=== PATIENT | female | born 1985 | race Caucasian/White ===

== ENCOUNTER → 2018-11-23 07:11 | Outpatient (CLI) | payer OTHER, SELFPAY ==
--- NOTE | 2018-11-23 07:19 | CT_ITS ---
STUDY: CT ABDOMEN AND PELVIS WITH CONTRAST REASON FOR EXAM: Female, 33 years old. Normal ovarian cyst on the right. Patient feels lump on left. RADIATION DOSAGE (If Supplied By Facility): CTDIvol = ( 6.61 ) mGy, DLP = ( 519.67 ) mGycm TECHNIQUE: Transaxial images were obtained from the dome of the diaphragm to the symphysis pubis with oral contrast. 100CC IV/Oral Isovue 300 was administered. Sagittal and coronal images were reconstructed. Individualized dose optimization techniques were used for this CT. COMPARISON: None. FINDINGS: The visualized lung bases are unremarkable. The visualized portions of the heart are within normal limits. Normal liver. Normal gallbladder and extrahepatic biliary system. Normal spleen. Normal pancreas. Normal bilateral adrenal glands. Normal right kidney. Normal left kidney. Normal contrast-filled stomach. Normal contrast filled small intestine. No contrast in the distal small bowel loops. Fecal contents throughout the colon. No bowel obstruction. The appendix is visualized and appears normal. Normal abdominal aorta. Normal inferior vena cava. Normal retroperitoneum. Normal urinary bladder. Normal fluid filled uterine cavity. 1.5 cm cyst in the left ovary is most likely follicular cyst. No visible cyst in the right ovary but there are adjacent fluid-filled small intestine. Normal abdominal wall. Normal osseous structures. CT/Abdomen/Pelvis WITH Contrast IMPRESSION: 1. No CT evidence of mass or acute abnormality in the abdomen and pelvis. 2. 1.5 cm cyst in the left ovary is most likely follicular cyst. Electronically Signed: Christopher Estrella MD at 12:23 EDT , Service support ,
== END ==
PROVIDERS: Family Provider Family Medicine; PCP Family Medicine; Referring Provider Family Medicine; Visit Provider Family Medicine
DX: N83.209 Unspecified ovarian cyst, unspecified side (principal)
CPT/HCPCS: 74177; Q9967

== ENCOUNTER 2019-02-08 17:41 | Emergency (ER) | payer OTHER, SELFPAY ==
[2019-02-08 17:43] VITALS: BP 135/87; PULSE 105; RESP 17; TEMP 37.1; O2SAT 99; BMI 25.1
--- NOTE | 2019-02-08 18:22 | ED.VISSUMM ---
- ER Visit Summary Date of Service: 02/08/19 Chief Complaint: [Laceration left thumb ] History of Present Illness: The patient is a 33 F [presents to the emergency department after sustaining a laceration to her left thumb while attempting to cut an onion. Patient is right-hand dominant. Patient unsure of her last tetanus.] Physical Examination: [Thumb-patient has a 1.8 cm laceration over the distal phalanx that is flap like it involves a small portion of the distal nail measuring approximately 5 mm in length. No bony tenderness on exam. Patient neurovascular intact.] Test Results: [None indicated] Emergency Department Course and Treatment: Laceration repair-wound sterilely draped and prepped. Using 1% lidocaine total of 8 cc used to perform a digital block. Wound cleansed with Shur-Clens and irrigated with copious saline. Used a sterile turnicot for hemostasis. Using 5-0 nylon a total of 4 single interrupted sutures placed with good wound edge approximation. Patient tolerated procedure well.] Treatment Plan: [Follow up with primary care physician in 10 days for suture removal.] Disposition: [Discharged home in stable condition] Impression: [Left thumb laceration with simple repair-1.8 cm] This note was generated with Student Designed dictation software. It may contain incorrect words, spelling, and punctuation that were not noted in review of the chart prior to signing ED Disposition - Plan for ED Patient: Referrals: Guillermo Young MD [Primary Care Provider] -
--- NOTE | 2019-02-08 18:26 | ED.DEP ---
ED Disposition - Plan for ED Patient: Instructions: LACERATION, Hand Referrals: Guillermo Young MD [Primary Care Provider] - 10 Day for suture removal
[2019-02-08] MEDS: Diphth,Pertuss(Acell),Tet Vac 0.5 ML Vial IM (18:28)
== END 2019-02-08 18:52 | disposition home or self-care (01) ==
LOC: ED 18:29
PROVIDERS: Emergency Provider Emergency Medicine; Family Provider Family Medicine; PCP Family Medicine
DX: S61.012A Laceration without foreign body of left thumb without damage to nail, initial encounter (principal); W26.9XXA Contact with unspecified sharp object(s), initial encounter; Y93.9 Activity, unspecified; Y92.9 Unspecified place or not applicable
CPT/HCPCS: 12001; 90471; 90715; 99283

== ENCOUNTER → 2019-09-04 08:56 | Outpatient (CLI) | payer OTHER, SELFPAY ==
[2019-09-04 09:48] LABS: Absolute Lymphocyte Count 1.18 X10^3/uL (0.83-4.51); Absolute Neutrophil Count 3.7 X10^3/uL (2.0-7.7); Basophil# 0.03 X10^3/uL; Basophil% 0.5 % (0-1); Eosinophil# 0.17 X10^3/uL; Eosinophils% 3.1 % (0-5); Hematocrit 40.4 % (37-47); Hemoglobin 12.9 g/dL (12.0-15.0); Lymphocyte # 1.18 X10^3/ul (4.0); Lymphocyte % 21.4 % (19-41); Mean Corp Hgb Conc 31.9 g/dL (32-36); Mean Corpuscular Hgb 28.2 pg (27.0-32.0); Mean Corpuscular Volume 88.4 fL (81-99); Mean Platelet Vol. 9.4 fl (6.2-12.0); Monocyte# 0.42 X10^3/uL; Monocyte% 7.6 % (0-10); NRBC Flagged by Analyzer 0 % (0-5); Neutrophil # 3.71 X10^3/uL (2.7-7.7); Neutrophil % 67.2 % (47-70); Platelet Count 318 K/mm3 (150-450); RBC Distribution Width CV 12.8 % (11.6-14.6); RBC Distribution Width SD 41.3 fl (35.1-43.9); Red Blood Count 4.57 M/mm3 (4.2-5.4); White Blood Count 5.5 K/mm3 (4.4-11.0)
[2019-09-04 10:05] LABS: Erythrocyte Sedimentation Rate 4 mm/hr (0-20)
[2019-09-04 10:12] LABS: ALB/GLOB Ratio 1.1 RATIO (0.9-2.4); AST(SGOT) 13 U/L (15-37); Alanine Aminotransfer ALT/SGPT 15 U/L (13-56); Alkaline Phosphatase 47 U/L (45-117); Anion Gap 4 (5-15); BUN 14 mg/dL (7-18); BUN/Creat Ratio 15.6 RATIO (10-20); Calcium,Total 8.9 mg/dL (8.5-10.1); Chloride 110 mmol/L (98-107); EST Glomerular Filtration Rate 75 mL/min (>60); Est Glom Filt Rate - Afr Amer 91 mL/min (>60); Globulin 3.6 g/dL (2.2-4.2); Glucose 86 mg/dL (74-106); Iron 143 ug/dL (50-170); Potassium 3.7 mmol/L (3.5-5.1); Protein, Total 7.6 g/dL (6.4-8.2); Sodium Level 139 mmol/L (136-145)
[2019-09-04 10:15] LABS: Vitamin B12 553 pg/mL (211-911); Vitamin D,25 Hydroxy 34.4 ng/mL
[2019-09-06 03:06] LABS: Lyme IgG P18 Ab Present (.); Lyme IgG P23 Ab Absent (.); Lyme IgG P28 Ab Absent (.); Lyme IgG P30 Ab Absent (.); Lyme IgG P39 Ab Present (.); Lyme IgG P41 Ab Absent (.); Lyme IgG P45 Ab Absent (.); Lyme IgG P58 Ab Absent (.); Lyme IgG P66 Ab Absent (.); Lyme IgG P93 Ab Absent (.); Lyme IgM P23 Ab Absent (.); Lyme IgM P39 Ab Absent (.); Lyme IgM P41 Ab Absent (.)
[2019-09-06 15:42] LABS: EBV Acute VCA IgM < 36.0 U/mL (0.0-35.9); Lyme IgG WB Interpretation Negative (.); Lyme IgM WB Interpretation Negative (.); Thyroglobulin Antibody < 1.0 IU/mL (0.0-0.9); Thyroid Peroxidase AB 9 IU/mL (0-34)
== END ==
PROVIDERS: PCP Family Medicine
DX: R53.83 Other fatigue (principal)
CPT/HCPCS: 36415; 80053; 82306; 82533; 82607; 83540; 85025; 85652; 86376; 86617; 86664; 86665; 86800

== ENCOUNTER → 2019-09-11 14:00 | Outpatient (CLI) | payer OTHER, SELFPAY ==
[2019-09-11 18:18] LABS: Free T3 2.6 pg/mL (2.18-3.98); T4 Total, Thyroxin 11.4 ug/dL (4.8-13.9); Thyroid Stim Hormone (TSH) 0.73 uIU/mL (0.358-3.74)
== END ==
PROVIDERS: PCP Family Medicine; Referring Provider Family Medicine; Visit Provider Family Medicine
DX: E03.9 Hypothyroidism, unspecified (principal)
CPT/HCPCS: 36415; 84436; 84443; 84481

== ENCOUNTER 2022-11-25 18:09 | Inpatient (IN) | payer OTHER, SELFPAY ==
[2022-11-25] VITALS (9 sets, daily range): BP systolic 98–133; BP diastolic 58–74; PULSE 98–133; RESP 17–29; TEMP 36.5–36.6; O2SAT 94–100; BMI 19.5
--- NOTE | 2022-11-25 18:29 | EKG12_ITS ---
Test Reason : DYSRHYTHMIA Blood Pressure : / mmHG Vent. Rate : 110 BPM Atrial Rate : 110 BPM P-R Int : 112 ms QRS Dur : 084 ms QT Int : 480 ms P-R-T Axes : 069 070 065 degrees QTc Int : 649 ms Sinus tachycardia Prolonged QT Abnormal ECG Confirmed by EMMA ASH, MARBELLA ([id number]), tape editor GALLITO WHEAT ([id number]) on 11/26/2022 9:24:03 AM Referred By: SHARMIN Confirmed By:MARBELLA CARTER MD
[2022-11-25 18:39] LABS: Absolute Lymphocyte Count 2.08 X10^3/uL (0.83-4.51); Absolute Neutrophil Count 10.4 X10^3/uL (2.0-7.7); Basophil% 0.7 % (0-1); Eosinophil# 0.04 X10^3/uL; Eosinophils% 0.3 % (0-5); Hematocrit 44.3 % (37-47); Hemoglobin 14.3 g/dL (12.0-15.0); Lymphocyte # 2.08 X10^3/ul (0.83-4.51); Lymphocyte % 15.5 % (19-41); Mean Corp Hgb Conc 32.3 g/dL (32-36); Mean Corpuscular Hgb 28.9 pg (27.0-32.0); Mean Corpuscular Volume 89.5 fL (81-99); Mean Platelet Vol. 9.4 fl (6.2-12.0); NRBC Flagged by Analyzer 0 % (0-5); Neutrophil # 10.36 X10^3/uL (2.7-7.7); Neutrophil % 77.1 % (47-70); Platelet Count 414 K/mm3 (150-450); RBC Distribution Width CV 12.6 % (11.6-14.6); RBC Distribution Width SD 41.2 fl (35.1-43.9); Red Blood Count 4.95 M/mm3 (4.2-5.4); White Blood Count 13.4 K/mm3 (4.4-11.0)
[2022-11-25 18:56] LABS: Bacteria 0 SEEN /hpf (None Seen); Mucous, Urine 0 SEEN /hpf (<or=2+); Red Blood Cells-Urine 0 SEEN /hpf (0-5); White Blood Cells 0 SEEN /hpf (0-5)
[2022-11-25 18:58] LABS: ALB/GLOB Ratio 1.1 RATIO (0.9-2.4); AST(SGOT) 11 U/L (15-37); Alanine Aminotransfer ALT/SGPT 13 U/L (13-56); Albumin, Serum 4.4 g/dL (3.2-5.0); Alkaline Phosphatase 49 U/L (45-117); Anion Gap 15 (5-15); BUN 14 mg/dL (7-18); Calcium,Total 9.8 mg/dL (8.5-10.1); Chloride 103 mmol/L (98-107); Creatinine, Serum 1.08 mg/dL (0.55-1.02); EST Glomerular Filtration Rate 60 mL/min (>60); Est Glom Filt Rate - Afr Amer 73 mL/min (>60); Estimated Creatinine Clearance 64.48 ml/min; Globulin 3.9 g/dL (2.2-4.2); Glucose 154 mg/dL (74-106); Protein, Total 8.3 g/dL (6.4-8.2); Sodium Level 139 mmol/L (136-145)
[2022-11-25 18:58] LABS: Color, Urine Yellow (Yellow); Glucose, Dipstick Normal (Normal); Ketone-Dipstick 5 mg/dl (Negative); Leukocyte Esterase-Dipstick Negative /ul (Negative); Nitrite-Dipstick Negative (Negative); Occult Blood-Urine 10 /ul (Negative); Protein-Dipstick 15 mg/dl (Negative); Urine Bilirubin Dipstick Negative (Negative); Urine Clarity Clear (Clear); Urine Urobilinogen Normal (Normal)
[2022-11-25 19:00] LABS: Internal QC Validated? YES +Cl - CLEAR BKGD; Pregnancy, Serum, hCG Quali. NEGATIVE Negative
[2022-11-25 19:03] LABS: Acetaminophen (Tylenol) Level 226.2 ug/mL (10.0-30.0)
[2022-11-25 19:08] LABS: Squamous Epithelial Cells - UA 0-5 SEEN /hpf (5-10)
[2022-11-25 19:23] LABS: Amphetamine Urine VISTA NEGATIVE (<1000 ng/mL); Barbiturate Urine VISTA NEGATIVE (< 200 ng/mL); Benzodiazepine Urine VISTA NEGATIVE (< 200 ng/mL); Cocaine Urine VISTA NEGATIVE (< 300 ng/mL); Ecstacy Urine VISTA NEGATIVE (< 500 ng/mL); Methadone Urine VISTA NEGATIVE (< 300 ng/mL); PCP Urine VISTA NEGATIVE (< 25 ng/mL); THC Urine VISTA NEGATIVE (< 50 ng/mL); Vista UDS pH Range 4
--- NOTE | 2022-11-25 19:32 | CM.ED ---
Social Work SW met with MD Camacho to review patient's presenting symptoms and safety concerns. Patient is pink slipped due to suicide attempt. Patient to be evaluated once medically cleared. Treva LYNN, JANNETTE
[2022-11-25] MEDS: 0.9% Normal Saline 1,000 ML 1000 ML IV (20:36)
[2022-11-25 21:33] LABS: Acetaminophen (Tylenol) Level 319.1 ug/mL (10.0-30.0)
--- NOTE | 2022-11-25 22:00 | PCM.HP.STD ---
HPI - General General Date of Admission: 11/25/22 Date of Service: 11/25/22 Chief Complaint: Suicide attempt, tylenol overdose HPI Narrative The patient is a 37 y/o F w/ PMHx: Hypothyroidism, Depression previously on medications/counseling with at her [facility] most recently 6 months prior with remote (~20 years ago) suicide attempt with similar pattern who presents to the [facility] ED on 11/25/22 with significant depressive history with suicide attempt with self administration of unclear amounts of alcohol as well as Tylenol PM/Sudafed reportedly just before she texted her spouse noting that she was not worthy and to tell her children that she loved them prompting him to immediately call EMS at 17:22 with possible ingestion just prior to this (possible 4:45 pm) but unclear exact time. Patient initially refused any treatment from EMS or any treatment and transferred to the hospital. Patient's did show EMS which she had wrote him earlier stating that he had always deserve better and that she wanted make sure the kids knew that she loved them. Given this patient was pink slipped and brought to the ED. On route patient became significantly more drowsy and had a bout of emesis. Patient eventually became only responsive to stimuli verbally and could not answer any questions. From discussion with patient has reportedly been utilizing social media quite a bit and messaging potentially with a gentleman who lives in [place] who she is known prior to their marriage and may have significant guilt about this from his report. Work-up in the ED included T97.7, heart rate 133, BP 118/74, respiratory rate 25, 94% on room air--> most recent vital signs BP 98/60, respiratory rate 24, heart rate 110, 97% on room air, CBC with WBC 13.4, hemoglobin 14.3, platelet 414 with left shift, CMP with potassium 3.0, BUN/creatinine 14/1.08, glucose 154, hepatic profile not marked appearing, serum testing negative, urinalysis with specific IV 1.020 otherwise not marked appearing, UDS negative, ethyl alcohol 103, acetaminophen level 226.2 with repeat acetaminophen level increased to 319.1 (obtained at 4 hour darnell) therefore patient initiated on N-acetylcysteine dosing protocol and administered 1 L normal saline as well as Zofran 4 mg IV x1. [facility] Medical History (Updated 11/25/22 @ 22:[address] Selma Olsen MD) Depression History of suicide attempt Hypothyroidism Home Medications levothyroxine 100 mcg tablet (Synthroid) 100 mcg PO DAILY 11/25/22 [History Last Taken Unknown] Allergy/AdvReac Type Severity Reaction Status Date / Time suture Allergy NEEDS Verified 04/02/22 14:59 FOLLOW-UP Family History (Updated 11/25/22 @ 22:[address] Selma Olsen MD) Mother Anxiety and depression Father Heart disease Sister Anxiety and depression Sister x 2 with depression/anxiety. Surgical History (Updated 11/25/22 @ 22:[address] Selma Olsen MD) History of thyroidectomy Surgical History no surgical history Social History (Updated 11/25/22 @ 22:[address] Selma Olsen MD) household members: spouse and children Smoking Status: Never smoker alcohol intake: current alcohol intake frequency: a few times a month substance use type: does not use ROS Review of Systems ROS Unobtainable: due to encephalopathy and due to mental condition Vital Signs Vital Signs Vital Signs: 11/25/22 18:11 11/25/22 18:25 11/25/22 20:57 Temperature 97.7 F L Temperature Source Temporal Pulse Rate 133 H 130 H 110 H Respiratory Rate 25 H 24 H Blood Pressure 118/74 98/60 Blood Pressure Mean 88 72 Pulse Ox 94 97 Oxygen Delivery Method Room Air Room Air 11/25/22 21:00 Temperature Temperature Source Pulse Rate 115 H Respiratory Rate 17 Blood Pressure 113/67 Blood Pressure Mean 82 Pulse Ox 97 Oxygen Delivery Method Room Air Weight Weight: 128 lb 11.999 oz Body Mass Index (BMI) 19.5 Physical Exam Narrative Physical Examination: General: Awake, lethargic, encephalopathic, following movements but not answering any orientation questions or following marked commands, laying in the ED bed, extremely flat affect. Skin: Normal color, normal turgor, no icterus, no cyanosis. HEENT: AT/NC, EOM appear to be intact though she does follow me from sides of the bed, PERRLA, dry MM, no carotid bruits or JVD noted. Lungs: Diminished, greater bases, appropriate effort, no rales, ronchi or wheezing. Heart: Tachycardic with regular rhythm; no gallop, rub audible. Abdomen: Soft, NTTP, ND, hyperactive BS, no HSM. Extremities: No cyanosis, clubbing, or edema. Neurological: Awake, lethargic, encephalopathic, following movements but not answering any orientation questions or following marked commands, laying in the ED bed, extremely flat affect, cognitive function not baseline intact; pupils equally reactive to light and accommodation, cranial nerves difficult to assess given her encephalopathy but grossly appear normal, moving all 4 extremities spontaneously, strength difficult to if assessed as not following commands, very lethargic. Psychiatric: Affect appears flat, underlying history of depression with prior similar suicide attempt per discussion with present. Results Lab / Micro Data 11/25/22 18:20 11/25/22 18:20 Labs: Laboratory Results - last 24 hr 11/25/22 18:20: WBC 13.4 H, RBC 4.95, Hgb 14.3, Hct 44.3, MCV 89.5, MCH 28.9, MCHC 32.3, RDW Std Deviation 41.2, RDW Coeff of Jessy 12.6, Plt Count 414, MPV 9.4, Immature Gran % (Auto) 0.400, Neut % (Auto) 77.1 H, Lymph % (Auto) 15.5 L, [place] % (Auto) 6.0, Eos % (Auto) 0.3, Baso % (Auto) 0.7, Absolute Neuts (auto) 10.4 H, Absolute Lymphs (auto) 2.08, Nucleated RBC % 0, Sodium 139, Potassium 3.0 L, Chloride 103, Carbon Dioxide 21.0, Anion Gap 15, BUN 14, Creatinine 1.08 H, Estim Creat Clear Calc 64.48, Est GFR (MDRD) Af Amer 73, Est GFR (MDRD) Non-Af 60, BUN/Creatinine Ratio 13.0, Glucose 154 H, Calcium 9.8, Total Bilirubin 0.50, AST 11 L, ALT 13, Alkaline Phosphatase 49, Total Protein 8.3 H, Albumin 4.4, Globulin 3.9, Albumin/Globulin Ratio 1.1, Serum , Qual NEGATIVE, Acetaminophen 226.2 H*, Ethyl Alcohol 103.0 11/25/22 18:50: Urine Color Yellow, Urine Clarity Clear, Urine pH 5.0, Ur Specific [place] 1.020, Urine Protein 15 H, Urine Glucose (UA) Normal, Urine Ketones 5 H, Urine Occult Blood 10 H, Urine Nitrite Negative, Urine Bilirubin Negative, Urine Urobilinogen Normal, Ur Leukocyte Esterase Negative, Urine RBC 0 SEEN, Urine WBC 0 SEEN, Ur Squamous Epith Cells 0-5 SEEN, Urine Bacteria 0 SEEN, Urine Mucus 0 SEEN, Urine Opiates Screen NEGATIVE, Urine Methadone Screen NEGATIVE, Ur Barbiturates Screen NEGATIVE, Ur Phencyclidine Scrn NEGATIVE, Ur Amphetamines Screen NEGATIVE, MDMA (Ecstasy) Screen NEGATIVE, U Benzodiazepines Scrn NEGATIVE, Urine Cocaine Screen NEGATIVE, U Cannabinoids Screen NEGATIVE, Ur Drug Screen Comment 11/25/22 20:50: Acetaminophen 319.1 H* Assessment & Plan Assessment/Plan (1) Tylenol overdose: (2) Suicide attempt: PLAN: Plan The patient is a 37 y/o F w/ PMHx: Hypothyroidism, Depression previously on medications/counseling with at her [facility] most recently 6 months prior with remote (~20 years ago) suicide attempt with similar pattern who presents to the [facility] ED on 11/25/22 with significant depressive history with suicide attempt with self administration of unclear amounts of alcohol as well as Tylenol PM/Sudafed reportedly just before she texted her spouse noting that she was not worthy and to tell her children that she loved them prompting him to immediately call EMS. #1. Acute Encephalopathy secondary to Acute intentional acetaminophen overdose coupled with #2 EtOH intoxication with underlying Severe Depression w/ prior remote suicide attempt, not current on medications or in active counseling: We will admit to the ICU, will maintain on suicide precautions low threshold to intubate if status deteriorates or unable to protect airway, given ingestion is within 4 hours we will continue with oral administration of activated charcoal 1 g/kg with maximum dose 50 g unless altered mental status, will continue with N-acetylcysteine administration initiated in the ED with continued acetaminophen level as well as CMP trending, monitor for any nonallergic anaphylactic reactions as needed antiemetics, monitor coags, once patient has been clinically cleared will need crisis involvement and she will need psychiatric placement for severe uncontrolled depression with a significant suicide attempt. We will continue suicide precautions. Discussed with patient spouse that she would strongly benefit from psychiatrist/psychologist evaluations as she has been following with counseling at her [facility] from description as there are several other options aside not only medications and counseling but potentially ketamine versus electroshock therapy given severity of this current presentation if items have not worked for her in the past. #2. Acute alcohol intoxication: In addition to unclear amounts of Tylenol PM patient ingested unclear amount of alcohol, presentation alcohol level 103, continue aggressive hydration, monitor CMP, monitor coags, trend ethyl alcohol level as will be needed prior to psych transfer. #3. Hyperglycemia, suspect stress response: Admission glucose 154, suspect stress response, will continue to trend CMP and if remains elevated will obtain hemoglobin A1c. #4. Hypokalemia: Admission K+ 3.0, magnesium level requested, supplementation given, repeat level in AM. #5. Hypothyroidism: We will continue Synthroid regimen as long as oral intake is safe. Given significant depression we will obtain TSH and free T4. #6. DVT prophylaxis: Low risk. Charges/Coding Visit Charges Inpatient E&M: 44357 Init Hosp L3
--- NOTE | 2022-11-25 22:07 | EX.ED.SAOD ---
HPI History of Present Illness Chief Complaint: Overdose Informant: spouse/S.O. Onset/Context/Timing Onset: Today Context: Sudden Onset Timing: Continuous Quality: Depressed Location: Generalized Worsened by: Nothing Relieved by: Nothing Associated Symptoms Associated Symptoms: Positive for suicidal ideation Narrative Narrative: Patient presents after overdose on medications that occurred today. states that he found the patient after she drank alcohol. states the patient told her that she took a couple Tylenol p.m. also states that the patient admitted that she also took some Sudafed p.m. Later, states that patient admitted to taking a couple handfuls of Tylenol PM. states he found a suicide note. Patient is nonverbal and does not answer any questions. reports that the patient took the Tylenol at approximately 4:45 PM today. [facility] Medical History Hypothyroidism Home Medications levothyroxine 100 mcg tablet (Synthroid) 100 mcg PO DAILY 11/25/22 [History Last Taken Unknown] Allergy/AdvReac Type Severity Reaction Status Date / Time suture Allergy NEEDS Verified 04/02/22 14:59 FOLLOW-UP Surgical History no surgical history no surgical history Social History Smoking Status: Never smoker ROS ROS ED Review of Systems ROS Unobtainable: due to mental condition and due to mental status EXAM Physical Exam Const Vital Signs: 11/25/22 18:11 11/25/22 18:25 11/25/22 20:57 Temperature 97.7 F L Temperature Source Temporal Pulse Rate 133 H 130 H 110 H Respiratory Rate 25 H 24 H Blood Pressure 118/74 98/60 Blood Pressure Mean 88 72 Pulse Ox 94 97 Oxygen Delivery Method Room Air Room Air 11/25/22 21:00 Temperature Temperature Source Pulse Rate 115 H Respiratory Rate 17 Blood Pressure 113/67 Blood Pressure Mean 82 Pulse Ox 97 Oxygen Delivery Method Room Air Positive well developed General Appearance ED: well developed and NAD HEENT Reports moist mucous membranes Eyes PERRL and EOMs intact bilaterally Neck supple and no JVD Resp Auscultation: diminished lung sounds Cardio regular rhythm Rate: tachycardic GI soft to palpation, non-tender and non-distended Neuro Christopher Coma Scale: document GCS findings To Voice Localizes to Pain Incomprehensible 10 Psych Mood & Affect: depressed MDM MDM MDM Narrative Medical decision making narrative: Differential diagnosis includes acetaminophen toxicity, suicidal ideation, alcohol intoxication, substance abuse, anticholinergic toxicity, dehydration, electrolyte abnormality, and hepatic abnormality. CBC will be obtained to assess for leukocytosis and anemia. Comprehensive metabolic profile will be obtained to assess for hepatic function, renal function or mood electrolyte abnormality. Serum hCG will be obtained to assess for . PT with INR and PTT will be obtained to assess for coagulopathy. Urine tox screen will be obtained to assess for substance abuse. Serum alcohol level will be obtained to assess for signs of alcohol intoxication. Urinalysis will be obtained to assess for urinary tract infection. 4-hour acetaminophen level will be obtained to assess for acetaminophen toxicity. Lab Data Attestation: I reviewed the patient's lab results. Lab results narrative: CBC was reviewed. There is a mild leukocytosis of 13.4. The remainder is within normal limits. Comprehensive metabolic profile was reviewed. Glucose was slightly elevated at 154. Creatinine was 1.08. The remainder is within normal limits. Serum hCG was reviewed and was negative. Serum alcohol level was reviewed and was 103. Urine tox screen was reviewed and was negative. Urinalysis was reviewed and was negative. Acetaminophen level was initially obtained with initial labs and was 226.2. The 4-hour acetaminophen level was reviewed and was 319.1. Labs: Laboratory Results - last 24 hr 11/25/22 11/25/22 11/25/22 18:20 18:50 20:50 WBC 13.4 H RBC 4.95 Hgb 14.3 Hct 44.3 MCV 89.5 MCH 28.9 MCHC 32.3 RDW Std Deviation 41.2 RDW Coeff of Jessy 12.6 Plt Count 414 MPV 9.4 Immature Gran % (Auto) 0.400 Neut % (Auto) 77.1 H Lymph % (Auto) 15.5 L [place] % (Auto) 6.0 Eos % (Auto) 0.3 Baso % (Auto) 0.7 Absolute Neuts (auto) 10.4 H Absolute Lymphs (auto) 2.08 Nucleated RBC % 0 Sodium 139 Potassium 3.0 L Chloride 103 Carbon Dioxide 21.0 Anion Gap 15 BUN 14 Creatinine 1.08 H Estim Creat Clear Calc 64.48 Est GFR (MDRD) Af Amer 73 Est GFR (MDRD) Non-Af 60 BUN/Creatinine Ratio 13.0 Glucose 154 H Calcium 9.8 Total Bilirubin 0.50 AST 11 L ALT 13 Alkaline Phosphatase 49 Total Protein 8.3 H Albumin 4.4 Globulin 3.9 Albumin/Globulin Ratio 1.1 Serum , Qual NEGATIVE Urine Color Yellow Urine Clarity Clear Urine pH 5.0 Ur Specific [place] 1.020 Urine Protein 15 H Urine Glucose (UA) Normal Urine Ketones 5 H Urine Occult Blood 10 H Urine Nitrite Negative Urine Bilirubin Negative Urine Urobilinogen Normal Ur Leukocyte Esterase Negative Urine RBC 0 SEEN Urine WBC 0 SEEN Ur Squamous Epith Cells 0-5 SEEN Urine Bacteria 0 SEEN Urine Mucus 0 SEEN Urine Opiates Screen NEGATIVE Urine Methadone Screen NEGATIVE Acetaminophen 226.2 H* 319.1 H* Ur Barbiturates Screen NEGATIVE Ur Phencyclidine Scrn NEGATIVE Ur Amphetamines Screen NEGATIVE MDMA (Ecstasy) Screen NEGATIVE U Benzodiazepines Scrn NEGATIVE Urine Cocaine Screen NEGATIVE U Cannabinoids Screen NEGATIVE Ur Drug Screen Comment Ethyl Alcohol 103.0 EKG Initial EKG: Attestation: I personally reviewed and interpreted this EKG as follows: Interpretation: Sinus Tachycardia (110) and Non-Specific ST Changes Comments: EKG was obtained. On my independent interpretation, it showed a sinus tachycardia with a rate of 110. [place] interval was within normal limits. QRS interval was within normal limits. QTc interval was prolonged at 649 ms. [place] was normal. There are nonspecific ST-T wave changes. Prior EKG tracings: not available for review Prior: No Prior Management Discussion w/another healthcare provider: Hospitalist Treatment and Re-Evaluation Narrative: Patient was given IV fluids and Zofran. Because of the elevated 4-hour acetaminophen level, patient was started on IV N-acetylcysteine. Case was discussed with the hospitalist. She will admit patient to ICU. understood and was agreeable with the plan. All questions were answered. Critical Care Time Critical Care Time: Yes Critical care time (excluding procedures): 30-74 minutes (41), Including time spent:, Discussing w/Patient &/or Family/Frame [place]ander, Discussing w/Consultants, Arranging Admission or Transfer and Performing Direct Patient Care at Bedside Discharge Plan Triage Chief Complaint: Overdose Other Complaint: Suicidal ED Provider: Robert Camacho Dx/Rx/DC Orders Clinical Impression: Suicide attempt, Tylenol overdose Prescriptions: No Action levothyroxine [Synthroid] 100 mcg tablet 100 mcg PO DAILY Primary Care Provider: Care Physician,No Primary Referrals: Care Physician,No Primary [Primary Care Provider] - Disposition Disposition: Acute Care Hospital [facility]
[2022-11-25] MEDS: Ondansetron 4 MG/2 ML Vial IV (22:13)
[2022-11-25 22:26] LABS: Magnesium 1.9 mg/dL (1.6-2.6)
[2022-11-25 22:35] LABS: International Normalized Ratio 1.2; Prothrombin Time (Protime)PT. 15.1 SECONDS (11.7-14.9)
[2022-11-25 22:36] LABS: Partial Thromboplast Time 25.3 Seconds (24.1-36.2)
[2022-11-26] VITALS (24 sets, daily range): BP systolic 102–143; BP diastolic 54–87; PULSE 54–99; RESP 14–25; TEMP 36.2–37; O2SAT 96–100; BMI 21.2
[2022-11-26] MEDS: 0.9% Normal Saline 1,000 ML 999 ML IV (00:07)
[2022-11-26] MEDS: Potassium Chloride 10mEq/100mL 10 MEQ/100 ML IV.SOLN. 100 MEQ IV BOLUS ×4 (00:29→04:05)
[2022-11-26] MEDS: 0.9% Normal Saline 1,000 ML 150 ML IV ×4 (01:08→19:50)
[2022-11-26 05:00] LABS: International Normalized Ratio 1.3; Prothrombin Time (Protime)PT. 15.8 SECONDS (11.7-14.9)
[2022-11-26 05:01] LABS: Partial Thromboplast Time 27.1 Seconds (24.1-36.2)
[2022-11-26 05:08] LABS: Absolute Lymphocyte Count 0.73 X10^3/uL (0.83-4.51); Absolute Neutrophil Count 9.2 X10^3/uL (2.0-7.7); Basophil# 0.03 X10^3/uL; Basophil% 0.3 % (0-1); Hematocrit 35.4 % (37-47); Hemoglobin 11.5 g/dL (12.0-15.0); Lymphocyte # 0.73 X10^3/ul (0.83-4.51); Lymphocyte % 6.9 % (19-41); Mean Corp Hgb Conc 32.5 g/dL (32-36); Mean Corpuscular Hgb 29.1 pg (27.0-32.0); Mean Corpuscular Volume 89.6 fL (81-99); Mean Platelet Vol. 9.5 fl (6.2-12.0); Monocyte# 0.52 X10^3/uL; Monocyte% 4.9 % (0-10); NRBC Flagged by Analyzer 0 % (0-5); Neutrophil # 9.18 X10^3/uL (2.7-7.7); Neutrophil % 87.4 % (47-70); Platelet Count 321 K/mm3 (150-450); RBC Distribution Width CV 12.5 % (11.6-14.6); RBC Distribution Width SD 41.4 fl (35.1-43.9); Red Blood Count 3.95 M/mm3 (4.2-5.4); White Blood Count 10.5 K/mm3 (4.4-11.0)
[2022-11-26 05:22] LABS: AST(SGOT) 11 U/L (15-37); Alanine Aminotransfer ALT/SGPT 20 U/L (13-56); Albumin, Serum 3.3 g/dL (3.2-5.0); Alkaline Phosphatase 34 U/L (45-117); Anion Gap 9 (5-15); BUN 8 mg/dL (7-18); BUN/Creat Ratio 9.1 RATIO (10-20); Calcium,Total 7.5 mg/dL (8.5-10.1); Chloride 109 mmol/L (98-107); Creatinine, Serum 0.88 mg/dL (0.55-1.02); EST Glomerular Filtration Rate 76 mL/min (>60); Est Glom Filt Rate - Afr Amer 93 mL/min (>60); Estimated Creatinine Clearance 86.18 ml/min; Globulin 3.2 g/dL (2.2-4.2); Glucose 141 mg/dL (74-106); Protein, Total 6.5 g/dL (6.4-8.2); Sodium Level 140 mmol/L (136-145); T4 Free Direct 1.44 ng/dL (0.76-1.46); Thyroid Stim Hormone (TSH) 0.21 uIU/mL (0.358-3.74)
[2022-11-26 05:23] LABS: Acetaminophen (Tylenol) Level 108.7 ug/mL (10.0-30.0); Alcohol, Blood (Medical)-Serum < 3.0 mg/dL
--- NOTE | 2022-11-26 07:02 | CON.PCM.CC_ITS ---
Assessment & Plan Assessment/Plan (1) Suicide attempt: (2) Tylenol overdose: PLAN: Plan RECOMMENDATIONS: 1. Continue N-acetylcysteine per protocol and continue to monitor acetaminophen level. 2. Continue supplemental IV fluid hydration. 3. Encourage incentive spirometer use while in bed and mobilize patient as tolerated. 4. Crisis evaluation once cleared medically. IMPRESSIONS: 1. Intentional acetaminophen overdose/suicide attempt The patient presented to the hospital following a suicide attempt with intentional acetaminophen overdose. She was appropriately placed on N- acetylcysteine and her serum acetaminophen levels are improving. Plan to continue the aforementioned intervention, per protocol. We will recheck ac etaminophen level in 4 hours. Continue supplemental IV fluid hydration. Once her levels normalize, she will be cleared from a medical perspective to be evaluated by the crisis team. 2. Acute alcohol intoxication Continue supportive measures as noted above. 3. History of depression/hypothyroidism Complicates care, management, recovery and prognosis. Continue home medications as indicated. Okay to advance diet as tolerated. This note was generated with [employer] dictation software. It may contain incorrect words, spelling, and punctuation that were not noted in checking the note before signing. HPI Consult Data Date of Consult: 11/26/22 HPI Narrative Reason for Consultation: Tylenol overdose HPI Narrative: The patient is a 37-year-old female, with a history as outlined below, who presented to the emergency department via EMS on November 25 following a suicide at [facility] in which the patient consumed an unknown amount of Tylenol. The patient had apparently written a questionable suicide letter to her earlier the same day. The patient's medical history is significant only for hypothyroidism. On presentation to the emergency department, the patient was noted to be afebrile, but was tachycardic and tachypneic. She was maintaining appropriate oxygen saturations on room air. Initial laboratory evaluation revealed a white blood cell count of 13,000. Chemistry profile was notable for a potassium of 3.0. Creatinine was documented to be 1.08. Liver function studies were unremarkable. Urine analysis was unremarkable. Alcohol level was elevated at 103. Acetaminophen level was elevated at 226. CT abdomen/pelvis was unremarkable. The patient was initially managed with antiemetics and IV fluids. She was ultimately placed on N-acetylcysteine due to her elevated acetaminophen level. The patient was subsequently admitted to the medical intensive care unit for further management. She is currently pink slipped. [facility] Medical History (Updated 11/25/22 @ 22:[address] Selma Olsen MD) Depression History of suicide attempt Hypothyroidism Home Medications levothyroxine 100 mcg tablet (Synthroid) 100 mcg PO DAILY 11/25/22 [History Last Taken Unknown] Allergy/AdvReac Type Severity Reaction Status Date / Time suture Allergy NEEDS Verified 04/02/22 14:59 FOLLOW-UP Family History (Updated 11/25/22 @ 22:[address] Selma Olsen MD) Mother Anxiety and depression Father Heart disease Sister Anxiety and depression Sister x 2 with depression/anxiety. Surgical History (Updated 11/25/22 @ 22:[address] Selma Olsen MD) History of thyroidectomy Surgical History no surgical history Social History (Updated 11/25/22 @ 22:[address] Selma Olsen MD) household members: spouse and children Smoking Status: Never smoker alcohol intake: current alcohol intake frequency: a few times a month substance use type: does not use ROS ROS Narrative 10 systems reviewed with pertinent positives as noted in the HPI above. Physical Exam Const alert, oriented x3 and no apparent distress General Appearance: cooperative HEENT normocephalic, head/scalp atraumatic and moist oral mucous membranes Eyes PERRL, EOMs intact bilaterally and conjunctivae normal Neck supple General: trachea midline Chest inspection of chest normal Resp normal respiratory effort Auscultation: Negative for rales, rhonchi or wheezes Cardio regular rate and regular rhythm GI normal to inspection, nondistended, normoactive bowel sounds Extremity no clubbing, cyanosis or edema Skin no rashes or lesions noted Neuro oriented x3, CN's II-XII intact bilaterally, moves all extremities and no focal motor deficits Psych Mood & Affect: flat affect Lab / Micro Data 11/26/22 04:10 11/26/22 04:10 Labs: Laboratory Results - last 24 hr 11/25/22 18:20: WBC 13.4 H, RBC 4.95, Hgb 14.3, Hct 44.3, MCV 89.5, MCH 28.9, MCHC 32.3, RDW Std Deviation 41.2, RDW Coeff of Jessy 12.6, Plt Count 414, MPV 9.4, Immature Gran % (Auto) 0.400, Neut % (Auto) 77.1 H, Lymph % (Auto) 15.5 L, [place] % (Auto) 6.0, Eos % (Auto) 0.3, Baso % (Auto) 0.7, Absolute Neuts (auto) 10.4 H, Absolute Lymphs (auto) 2.08, Nucleated RBC % 0, Sodium 139, Potassium 3.0 L, Chloride 103, Carbon Dioxide 21.0, Anion Gap 15, BUN 14, Creatinine 1.08 H, Estim Creat Clear Calc 64.48, Est GFR (MDRD) Af Amer 73, Est GFR (MDRD) Non- Af 60, BUN/Creatinine Ratio 13.0, Glucose 154 H, Calcium 9.8, Magnesium 1.9, Tot al Bilirubin 0.50, AST 11 L, ALT 13, Alkaline Phosphatase 49, Total Protein 8.3 H, Albumin 4.4, Globulin 3.9, Albumin/Globulin Ratio 1.1, Serum , Qual NEGATIVE, Acetaminophen 226.2 H*, Ethyl Alcohol 103.0 11/25/22 18:50: Urine Color Yellow, Urine Clarity Clear, Urine pH 5.0, Ur Specific [place] 1.020, Urine Protein 15 H, Urine Glucose (UA) Normal, Urine Ketones 5 H, Urine Occult Blood 10 H, Urine Nitrite Negative, Urine Bilirubin Negative, Urine Urobilinogen Normal, Ur Leukocyte Esterase Negative, Urine RBC 0 SEEN, Urine WBC 0 SEEN, Ur Squamous Epith Cells 0-5 SEEN, Urine Bacteria 0 SEEN, Urine Mucus 0 SEEN, Urine Opiates Screen NEGATIVE, Urine Methadone Screen NEGATIVE, Ur Barbiturates Screen NEGATIVE, Ur Phencyclidine Scrn NEGATIVE, Ur Amphetamines Screen NEGATIVE, MDMA (Ecstasy) Screen NEGATIVE, U Benzodiazepines Scrn NEGATIVE, Urine Cocaine Screen NEGATIVE, U Cannabinoids Screen NEGATIVE, Ur Drug Screen Comment 11/25/22 20:50: Acetaminophen 319.1 H* 11/25/22 22:12: PT 15.1 H, INR 1.2, APTT 25.3 11/26/22 04:10: WBC 10.5, RBC 3.95 L, Hgb 11.5 L, Hct 35.4 L, MCV 89.6, MCH 29.1, MCHC 32.5, RDW Std Deviation 41.4, RDW Coeff of Jessy 12.5, Plt Count 321, MPV 9.5, Immature Gran % (Auto) 0.500, Neut % (Auto) 87.4 H, Lymph % (Auto) 6.9 L, [place] % (Auto) 4.9, Eos % (Auto) 0.0, Baso % (Auto) 0.3, Absolute Neuts (auto) 9.2 H, Absolute Lymphs (auto) 0.73 L, Nucleated RBC % 0, PT 15.8 H, INR 1.3, APTT 27.1, Sodium 140, Potassium 4.0, Chloride 109 H, Carbon Dioxide 22.0, Anion Gap 9, BUN 8, Creatinine 0.88, Estim Creat Clear Calc 86.18, Est GFR (MDRD) Af Amer 93, Est GFR (MDRD) Non-Af 76, BUN/Creatinine Ratio 9.1 L, Glucose 141 H, Ca lcium 7.5 L, Total Bilirubin 0.40, AST 11 L, ALT 20, Alkaline Phosphatase 34 L, Total Protein 6.5, Albumin 3.3, Globulin 3.2, Albumin/Globulin Ratio 1.0, TSH 0.21 L, Free T4 1.44, Acetaminophen 108.7 H*, Ethyl Alcohol < 3.0 Charges/Coding Visit Charges Inpatient E&M: 98208 Init Hosp L3
[2022-11-26 09:12] LABS: Acetaminophen (Tylenol) Level 47.7 ug/mL (10.0-30.0)
--- NOTE | 2022-11-26 09:18 | CASEMGMT ---
Social Work SW participated in ICU rounds this morning. Once pt is medically cleared, she will be ready to see crisis. It is anticipated this will be today or tomorrow. VINNY will continue to follow. LUC Morton
--- NOTE | 2022-11-26 12:54 | PN_ITS ---
Subjective Subjective Patient seen and examined. She was drowsy but could answer questions. She had no active complaints. She was brought in because of intentional overdose of Tylenol as she wanted to kill herself. She admits to being depressed but denies any suicidal or homicidal ideations now. She denies any fever, chills, palpitat ions, dizziness, nausea vomiting or any other symptoms. Review of systems otherwise negative. She has made hemodynamically stable. Critical care is on board. Objective Data Objective Data Vital Signs: Vital Signs Temp Pulse Resp BP Pulse Ox O2 Del Method 97.5 F L 77 21 H 139/79 H 98 Room Air 11/26/22 12:00 11/26/22 12:00 11/26/22 12:00 11/26/22 12:00 11/26/22 12:00 11/26/22 12:00 Oxygen Delivery Method Room Air Weight: 140 lb 3.424 oz Body Mass Index (BMI) 21.2 Intake & Output: Intake and Output for Last 24 Hours 11/24/22 11/25/22 11/26/22 23:59 23:59 23:59 Intake Total 243.8 / 243.8 4074.6 / 4074.6 Output Total 1800 / 1800 Balance 243.8 / 243.8 2274.6 / 2274.6 Lab / Micro Data 11/26/22 04:10 11/26/22 04:10 Labs: Laboratory Results - last 24 hr 11/25/22 18:20: WBC 13.4 H, RBC 4.95, Hgb 14.3, Hct 44.3, MCV 89.5, MCH 28.9, MCHC 32.3, RDW Std Deviation 41.2, RDW Coeff of Jessy 12.6, Plt Count 414, MPV 9.4, Immature Gran % (Auto) 0.400, Neut % (Auto) 77.1 H, Lymph % (Auto) 15.5 L, [place] % (Auto) 6.0, Eos % (Auto) 0.3, Baso % (Auto) 0.7, Absolute Neuts (auto) 10.4 H, Absolute Lymphs (auto) 2.08, Nucleated RBC % 0, Sodium 139, Potassium 3.0 L, Chloride 103, Carbon Dioxide 21.0, Anion Gap 15, BUN 14, Creatinine 1.08 H, Estim Creat Clear Calc 64.48, Est GFR (MDRD) Af Amer 73, Est GFR (MDRD) Non- Af 60, BUN/Creatinine Ratio 13.0, Glucose 154 H, Calcium 9.8, Magnesium 1.9, Total Bilirubin 0.50, AST 11 L, ALT 13, Alkaline Phosphatase 49, Total Protein 8.3 H, Albumin 4.4, Globulin 3.9, Albumin/Globulin Ratio 1.1, Serum , Qual NEGATIVE, Acetaminophen 226.2 H*, Ethyl Alcohol 103.0 11/25/22 18:50: Urine Color Yellow, Urine Clarity Clear, Urine pH 5.0, Ur Specific [place] 1.020, Urine Protein 15 H, Urine Glucose (UA) Normal, Urine Ketones 5 H, Urine Occult Blood 10 H, Urine Nitrite Negative, Urine Bilirubin Negative, Urine Urobilinogen Normal, Ur Leukocyte Esterase Negative, Urine RBC 0 SEEN, Urine WBC 0 SEEN, Ur Squamous Epith Cells 0-5 SEEN, Urine Bacteria 0 SEEN, Urine Mucus 0 SEEN, Urine Opiates Screen NEGATIVE, Urine Methadone Screen NEGATIVE, Ur Barbiturates Screen NEGATIVE, Ur Phencyclidine Scrn NEGATIVE, Ur Amphetamines Screen NEGATIVE, MDMA (Ecstasy) Screen NEGATIVE, U Benzodiazepines Scrn NEGATIVE, Urine Cocaine Screen NEGATIVE, U Cannabinoids Screen NEGATIVE, Ur Drug Screen Comment 11/25/22 20:50: Acetaminophen 319.1 H* 11/25/22 22:12: PT 15.1 H, INR 1.2, APTT 25.3 11/26/22 04:10: WBC 10.5, RBC 3.95 L, Hgb 11.5 L, Hct 35.4 L, MCV 89.6, MCH 29.1, MCHC 32.5, RDW Std Deviation 41.4, RDW Coeff of Jessy 12.5, Plt Count 321, MPV 9.5, Immature Gran % (Auto) 0.500, Neut % (Auto) 87.4 H, Lymph % (Auto) 6.9 L, [place] % (Auto) 4.9, Eos % (Auto) 0.0, Baso % (Auto) 0.3, Absolute Neuts (auto) 9.2 H, Absolute Lymphs (auto) 0.73 L, Nucleated RBC % 0, PT 15.8 H, INR 1.3, APTT 27.1, Sodium 140, Potassium 4.0, Chloride 109 H, Carbon Dioxide 22.0, Anion Gap 9, BUN 8, Creatinine 0.88, Estim Creat Clear Calc 86.18, Est GFR (MDRD) Af Amer 93, Est GFR (MDRD) Non-Af 76, BUN/Creatinine Ratio 9.1 L, Glucose 141 H, Calcium 7.5 L, Total Bilirubin 0.40, AST 11 L, ALT 20, Alkaline Phosphatase 34 L , Total Protein 6.5, Albumin 3.3, Globulin 3.2, Albumin/Globulin Ratio 1.0, TSH 0.21 L, Free T4 1.44, Acetaminophen 108.7 H*, Ethyl Alcohol < 3.0 11/26/22 08:45: Acetaminophen 47.7 H Physical Exam Const alert and oriented x3 Orientation / Consciousness: lethargic HEENT normocephalic, head/scalp atraumatic and moist oral mucous membranes Eyes PERRL Neck no lymphadenopathy, supple and no JVD Lymph Lymphatic: no lymphadenopathy noted and no lymphedema noted Resp normal respiratory effort, normal air movement and clear to auscultation bilaterally Cardio regular rate, regular rhythm, S1 normal heart sound, S2 normal heart sound and no murmurs GI normal to inspection, nondistended, normoactive bowel sounds, soft to palpation, non-tender and non-distended Extremity normal capillary refill, no clubbing, cyanosis or edema and no calf tenderness Skin General Skin Exam: no breakdown Neuro CN's II-XII intact bilaterally, no focal motor deficits, no sensory deficits noted and deep tendon reflexes 2+ bilaterally Motor Exam: strength 5/5 throughout Psych Mood & Affect: flat affect Assessment & Plan Assessment/Plan (1) Suicide attempt: (2) Tylenol overdose: PLAN: Plan #Intentional tylenol overdoe * Patient took an intentional acetaminophen overdose in an attempt to kill herself because of depression. * She also ingested unclear amount of alcohol. Alcohol level was 103 on admission. * Tylenol level today is: * Continue to monitor patient for signs trends downwards. Tylenol level normalizes, she can be evaluated by mental health crisis team. * Tylenol level is down to 47.7 mcg/mL from a high of 319.1. * continue N acetyl cysteine and continue hydration with IVF * recheck tylenol level in 4 hours * #Acute alcohol intoxication * Continue gentle hydration with IV fluids. * Supportive management for now. Drank an unspecified amount of in the bed to commit suicide. * #Hypokalemia: Resolved #Hypothyroidism: On Synthroid. TSH was 0.21 but free T4 was within normal limits. #DVT prophylaxis: SCDs Disposition: Once Tylenol level normalizes, mental health crisis team will be consulted to evaluate patient for possible placement. Charges/Coding Visit Charges Inpatient E&M: 08139 Subs Hosp L3
[2022-11-26 13:35] LABS: Acetaminophen (Tylenol) Level 17.7 ug/mL (10.0-30.0)
[2022-11-27] VITALS (20 sets, daily range): BP systolic 103–135; BP diastolic 56–98; PULSE 46–108; RESP 14–20; TEMP 35.9–36.6; O2SAT 96–98; BMI 22.1
[2022-11-27] MEDS: 0.9% Normal Saline 1,000 ML 150 ML IV ×3 (01:30→13:47)
[2022-11-27 03:18] LABS: Absolute Lymphocyte Count 1.53 X10^3/uL (0.83-4.51); Absolute Neutrophil Count 3.8 X10^3/uL (2.0-7.7); Basophil# 0.04 X10^3/uL; Basophil% 0.7 % (0-1); Eosinophil# 0.06 X10^3/uL; Hematocrit 32.1 % (37-47); Hemoglobin 10.2 g/dL (12.0-15.0); Lymphocyte # 1.53 X10^3/ul (0.83-4.51); Lymphocyte % 26.3 % (19-41); Mean Corp Hgb Conc 31.8 g/dL (32-36); Mean Corpuscular Hgb 29.2 pg (27.0-32.0); Mean Platelet Vol. 9.4 fl (6.2-12.0); Monocyte% 6.9 % (0-10); NRBC Flagged by Analyzer 0 % (0-5); Neutrophil # 3.76 X10^3/uL (2.7-7.7); Neutrophil % 64.8 % (47-70); Platelet Count 208 K/mm3 (150-450); RBC Distribution Width CV 13.1 % (11.6-14.6); RBC Distribution Width SD 43.8 fl (35.1-43.9); Red Blood Count 3.49 M/mm3 (4.2-5.4); White Blood Count 5.8 K/mm3 (4.4-11.0)
[2022-11-27 03:54] LABS: AST(SGOT) 10 U/L (15-37); Alanine Aminotransfer ALT/SGPT 10 U/L (13-56); Albumin, Serum 2.7 g/dL (3.2-5.0); Alkaline Phosphatase 27 U/L (45-117); Anion Gap 4 (5-15); BUN 6 mg/dL (7-18); BUN/Creat Ratio 9.3 RATIO (10-20); Calcium,Total 7.8 mg/dL (8.5-10.1); Chloride 117 mmol/L (98-107); Creatinine, Serum 0.64 mg/dL (0.55-1.02); EST Glomerular Filtration Rate 109 mL/min (>60); Est Glom Filt Rate - Afr Amer 132 mL/min (>60); Estimated Creatinine Clearance 118.49 ml/min; Globulin 2.6 g/dL (2.2-4.2); Glucose 82 mg/dL (74-106); Potassium 3.5 mmol/L (3.5-5.1); Protein, Total 5.3 g/dL (6.4-8.2); Sodium Level 145 mmol/L (136-145)
--- NOTE | 2022-11-27 08:30 | NURSING ---
crisis notified on consult
--- NOTE | 2022-11-27 11:48 | NURSING ---
crisis notified of consult
--- NOTE | 2022-11-27 12:00 | CASEMGMT ---
Social Work SW called crisis as they have not called ICU back. Message left to call this SW. LUC Morton
--- NOTE | 2022-11-27 15:56 | PN_ITS ---
Subjective Subjective Patient seen and examined. She had no complaints today. Review of systems othewise negative. TYlenol level is down to 17, and has normalized. Review of systems was otherwise negative. Objective Data Objective Data Vital Signs: Vital Signs Temp Pulse Resp BP Pulse Ox O2 Del Method O2 Flow Rate 97.8 F 66 18 131/98 H 98 Nasal Cannula 3 11/27/22 12:00 11/27/22 14:00 11/27/22 14:00 11/27/22 14:00 11/27/22 14:00 11/27/22 14:00 11/27/22 14:00 Oxygen Flow Rate (L/min) 3 Oxygen Delivery Method Nasal Cannula Weight: 145 lb 15.136 oz Body Mass Index (BMI) 22.1 Intake & Output: Intake and Output for Last 24 Hours 11/25/22 11/26/22 11/27/22 23:59 23:59 23:59 Intake Total 243.8 / 243.8 7078.8 / 7078.8 3102.5 / 3102.5 Output Total 3000 / 3000 1500 / 1500 Balance 243.8 / 243.8 4078.8 / 4078.8 1602.5 / 1602.5 Lab / Micro Data 11/27/22 03:10 11/27/22 03:10 Labs: Laboratory Results - last 24 hr 11/27/22 03:10: WBC 5.8, RBC 3.49 L, Hgb 10.2 L, Hct 32.1 L, MCV 92.0, MCH 29.2, MCHC 31.8 L, RDW Std Deviation 43.8, RDW Coeff of Jessy 13.1, Plt Count 208, MPV 9.4, Immature Gran % (Auto) 0.300, Neut % (Auto) 64.8, Lymph % (Auto) 26.3, [place] % (Auto) 6.9, Eos % (Auto) 1.0, Baso % (Auto) 0.7, Absolute Neuts (auto) 3.8, Absolute Lymphs (auto) 1.53, Nucleated RBC % 0, Sodium 145, Potassium 3.5, Chloride 117 H, Carbon Dioxide 24.0, Anion Gap 4 L, BUN 6 L, Creatinine 0.64, Estim Creat Clear Calc 118.49, Est GFR (MDRD) Af Amer 132, Est GFR (MDRD) Non-Af 109, BUN/Creatinine Ratio 9.3 L, Glucose 82, Calcium 7.8 L, Total Bilirubin 0.40, AST 10 L, ALT 10 L, Alkaline Phosphatase 27 L, Total Protein 5.3 L, Albumin 2.7 L, Globulin 2.6, Albumin/Globulin Ratio 1.0 Micro: Microbiology 11/27/22 14:30 Nasal Secretion SARS-CoV-2 Antigen (Rapid) - Final Physical Exam Const alert and oriented x3 Orientation / Consciousness: lethargic HEENT normocephalic, head/scalp atraumatic and moist oral mucous membranes Eyes PERRL and EOMs intact bilaterally Neck no lymphadenopathy, supple and no JVD Lymph Lymphatic: no lymphadenopathy noted and no lymphedema noted Resp normal respiratory effort, normal air movement and clear to auscultation bilaterally Cardio regular rate, regular rhythm, S1 normal heart sound, S2 normal heart sound and no murmurs GI normal to inspection, nondistended, normoactive bowel sounds, soft to palpation, non-tender and non-distended Extremity normal capillary refill, no clubbing, cyanosis or edema and no calf tenderness Skin General Skin Exam: no breakdown Neuro CN's II-XII intact bilaterally, no focal motor deficits, no sensory deficits noted and deep tendon reflexes 2+ bilaterally Motor Exam: strength 5/5 throughout Psych Mood & Affect: flat affect Assessment & Plan Assessment/Plan (1) Suicide attempt: (2) Tylenol overdose: PLAN: Plan #Intentional tylenol overdoe * Patient took an intentional acetaminophen overdose in an attempt to kill herself because of depression. * She also ingested unclear amount of alcohol. Alcohol level was 103 on admission. * Tylenol level today is: * Continue to monitor patient for signs trends downwards. Tylenol level normali zes, she can be evaluated by mental health crisis team. * was placed on N acetyl cysteine. Tylenol level down to 17. * mental health crises team consulted and they will work on placement for patient. * #Acute alcohol intoxication * Supportive management for now. Drank an unspecified amount of in the bed to commit suicide. * #Hypokalemia: Resolved #Hypothyroidism: On Synthroid. TSH was 0.21 but free T4 was within normal limits. #DVT prophylaxis: SCDs Disposition: Mental health crisis team consulted. Spoke to patient's and at times place patient in a psychiatric facility. Charges/Coding Visit Charges Inpatient E&M: 15076 Subs Hosp L2
--- NOTE | 2022-11-27 17:52 | NURSING ---
report [facility] to [facility], transferred per bed with belongings to room 128, aware of room #128
--- NOTE | 2022-11-27 18:49 | NURSING ---
report called to [facility] for psych [phone], notified of transfer, [facility] [phone] for pick-up
--- NOTE | 2022-11-27 19:27 | NURSING ---
[facility]
== END 2022-11-27 19:35 | DRG 914 ==
LOC: ED 22:20 → ICU 22:53
PROVIDERS: Internal Medicine Critical Care Medicine; Admitting Provider Family Medicine; Emergency Provider Emergency Medicine; Visit Provider Student in an Organized Health Care Education/Training Program
DX: T14.91XA Suicide attempt, initial encounter (principal); G93.40 Encephalopathy, unspecified; T39.1X2A Poisoning by 4-Aminophenol derivatives, intentional self-harm, initial encounter; F10.129 Alcohol abuse with intoxication, unspecified; E87.6 Hypokalemia; F32.9 Major depressive disorder, single episode, unspecified; E03.9 Hypothyroidism, unspecified; R73.9 Hyperglycemia, unspecified; Y90.5 Blood alcohol level of 100-119 mg/100 ml
CPT/HCPCS: 80053; 80307; 80329; 81001; 82077; 83735; 84439; 84443; 84703; 85025; 85610; 85730; 87426; 93005; 94668; 99285; J7030; J7050; P9612; A4216; G0480; J2405

== ENCOUNTER → 2025-04-10 | Outpatient (CLI) | payer OTHER, SELFPAY ==
[2025-04-10 11:34] LABS: BUN 17 mg/dL (4-19); BUN/Creat Ratio 19.1 RATIO (10-20); Glucose 86 mg/dL (70-99)
[2025-04-10 11:35] LABS: AST(SGOT) 14 U/L (<=31); Alanine Aminotransfer ALT/SGPT 7 U/L (<=34); Albumin, Serum 4.4 g/dL (3.5-5.0); Alkaline Phosphatase 46 U/L (35-104); Calcium,Total 9.5 mg/dL (7.6-11.0); Globulin 2.8 g/dL (2.2-4.2)
[2025-04-10 11:36] LABS: Anion Gap 10 (5-15); Carbon Dioxide 25.8 mmol/L (21.0-32.0); Chloride 105 mmol/L (98-108); Cholesterol 164 mg/dL (<=200); Low Density Lipoprotein Calc. 92 mg/dL; Potassium 4.4 mmol/L (3.3-5.1); Triglycerides 64 mg/dL; Very Low Density Lipoprotein 13 mg/dL (5-40); cholesterol:hdl ratio screen 2.73
[2025-04-11 01:06] LABS: Hematocrit 36.9 % (37-47); Hemoglobin 12.5 g/dL (12.0-15.0); Immature Granulocytes Count 0.020 X10^3/uL (0.0-0.0); Mean Corp Hgb Conc 33.9 g/dL (32-36); Mean Corpuscular Volume 86.8 fL (81-99); Mean Platelet Vol. 9.5 fl (6.2-12.0); NRBC Flagged by Analyzer 0 % (0-5); Platelet Count 359 K/mm3 (150-450); RBC Distribution Width CV 12.6 % (11.6-14.6); RBC Distribution Width SD 40.2 fl (35.1-43.9); Red Blood Count 4.25 M/mm3 (4.2-5.4); White Blood Count 5.1 K/mm3 (4.4-11.0)
== END | disposition home or self-care (01) ==
LOC: MTLAB 09:10
PROVIDERS: PCP Internal Medicine; Referring Provider Internal Medicine; Visit Provider Internal Medicine
DX: E03.9 Hypothyroidism, unspecified (principal); R74.8 Abnormal levels of other serum enzymes; D64.9 Anemia, unspecified; Z13.220 Encounter for screening for lipoid disorders; R73.9 Hyperglycemia, unspecified
CPT/HCPCS: 36415; 80053; 80061; 83036; 84443; 85025